=== PATIENT | female | born 1995 | race Caucasian/White ===

== ENCOUNTER 2017-11-17 21:09 | Emergency (ER) | payer OTHER ==
[~2017-11-17] VITALS: Ht 160 cm; Wt 86.9 kg
[2017-11-17 21:13] VITALS: BP 119/77; PULSE 97; RESP 20; TEMP 97.1; O2SAT 98
[2017-11-17 21:49] LABS: BILIRUBIN, URINE NEG (NEG); BLOOD, URINE NEG (NEG); GLUCOSE,URINE NEG (NEG); KETONE, URINE NEG (NEG); NITRITE,URINE NEG (NEG); URINE LEUKOCYTE ESTERASE LARGE (NEG)
[2017-11-17 22:00] LABS: URINE COLOR YELLOW (YELLW/STRAW)
[2017-11-17 22:02] LABS: SQUAMOUS EPITHELIAL CELL URINE > 8 /hpf (0-5)
[2017-11-17 22:03] LABS: BACTERIA, URINE FEW /hpf
[2017-11-17 22:04] LABS: AMORPHOUS SEDIMENT, URINE FEW
[2017-11-17] MEDS ORDERED: SODIUM CHLOR 0.9% 1000 ML INJ 1,000 ML IV SCH (22:15)
[2017-11-17] MEDS ORDERED: ONDANSETRON HCL 4 MG/2 ML VIAL IVP ONE (22:15)
[2017-11-17] MEDS ORDERED: SODIUM CHLORIDE 0.9% FLUSH 10 ML FLUSH IV FLUSH PRN (22:15)
--- NOTE | 2017-11-17 22:18 | PD ---
HPI Chief Complaint: GI Complaint Time Seen by Provider: 22:12 Travel History International Travel<30 days: No Contact w/Intl Traveler<30days: No Traveled to known affect area: No History of Present Illness HPI The patient is a 22-year-old female that for 3 days has been vomiting in the morning and then the evening. This happened to her before when she was but so far urine test have been negative including 1 here. She denies vomiting any blood and he denies any abdominal pain. She denies any fever. She denies any diarrhea. She denies any dysuria, frequency or urgency. She denies any flank pain. [facility] Past Medical History Medical History: Denies Significant Hx Tetanus Vaccination: Unknown Influenza Vaccination: No ?: Not LMP: "early last month" Past Surgical History Surgical History: No Previous Surgery Social History Alcohol Use: Yes (OCCASIONAL) Tobacco Use: Yes (/2 PPD) Substance Use: No Allergies-Medications (Allergen,Severity, Reaction): Coded Allergies: No Known Allergies (Unverified , 11/17/17) Review of Systems Except as stated in HPI: all other systems reviewed are Neg Physical Exam Narrative GENERAL: The patient is alert, oriented 3, mildly dehydrated appearing in no apparent distress. Her vital signs are normal except for heart rate of 97. SKIN: Focused skin assessment warm/dry. HEAD: Atraumatic. Normocephalic. EYES: Pupils equal and round. No scleral icterus. No injection or drainage. ENT: No nasal bleeding or discharge. Mucous membranes pink and moist. NECK: Trachea midline. No JVD. CARDIOVASCULAR: Regular rate and rhythm. No murmur appreciated. RESPIRATORY: No accessory muscle use. Clear to auscultation. Breath sounds equal bilaterally. GASTROINTESTINAL: Abdomen soft, non-tender, nondistended. Hepatic and splenic margins not palpable. No guarding or rebound is present. MUSCULOSKELETAL: No obvious deformities. No clubbing. No cyanosis. No edema. NEUROLOGICAL: Awake and alert. No obvious cranial nerve deficits. Motor grossly within normal limits. Normal speech. PSYCHIATRIC: Appropriate mood and affect; insight and judgment normal. Data Data Last Documented VS Vital Signs Date Time Temp Pulse Resp B/P (MAP) Pulse Ox O2 Delivery O2 Flow Rate FiO2 11/17/17 22:35 16 99 Room Air 11/17/17 21:13 97.1 97 119/77 (91) Orders Orders Urinalysis - C+S If Indicated (11/17/17 21:29) Ed Urine Pregnancytest Poc (11/17/17 21:29) Urine Culture (11/17/17 21:34) Beta Hcg (Quant/Titer) (11/17/17 22:15) Complete Blood Count With Diff (11/17/17 22:15) Comprehensive Metabolic Panel (11/17/17 22:15) Lipase (11/17/17 22:15) Iv Access Insert/Monitor (11/17/17 22:15) Ecg Monitoring (11/17/17 22:15) Oximetry (11/17/17 22:15) Ondansetron Inj (Zofran Inj) (11/17/17 22:15) Sodium Chlor 0.9% 1000 Ml Inj (Ns 1000 M (11/17/17 22:15) Sodium Chloride 0.9% Flush (Ns Flush) (11/17/17 22:15) Labs Laboratory Tests Test 11/17/17 21:34 11/17/17 22:33 Urine Color YELLOW Urine Turbidity MOD Urine pH 6.0 Urine Specific [place] 1.024 Urine Protein NEG mg/dL Urine Glucose (UA) NEG mg/dL Urine Ketones NEG mg/dL Urine Occult Blood NEG Urine Nitrite NEG Urine Bilirubin NEG Urine Leukocyte Esterase LARGE Urine WBC 25-49 /hpf Urine Squamous Epithelial Cells > 8 /hpf Urine Amorphous Sediment FEW Urine Bacteria FEW /hpf Microscopic Urinalysis Comment CULTURE INDICATED White Blood Count 13.4 TH/MM3 Red Blood Count 5.61 MIL/MM3 Hemoglobin 14.4 GM/DL Hematocrit 45.8 % Mean Corpuscular Volume 81.6 FL Mean Corpuscular Hemoglobin 25.6 PG Mean Corpuscular Hemoglobin Concent 31.3 % Red Cell Distribution Width 12.6 % Platelet Count 259 TH/MM3 Mean Platelet Volume 10.7 FL Neutrophils (%) (Auto) 67.6 % Lymphocytes (%) (Auto) 20.9 % Monocytes (%) (Auto) 8.5 % Eosinophils (%) (Auto) 2.3 % Basophils (%) (Auto) 0.7 % Neutrophils # (Auto) 9.1 TH/MM3 Lymphocytes # (Auto) 2.8 TH/MM3 Monocytes # (Auto) 1.1 TH/MM3 Eosinophils # (Auto) 0.3 TH/MM3 Basophils # (Auto) 0.1 TH/MM3 CBC Comment DIFF FINAL Differential Comment Blood Urea Nitrogen 17 MG/DL Creatinine 0.80 MG/DL Random Glucose 91 MG/DL Total Protein 7.8 GM/DL Albumin 3.5 GM/DL Calcium Level 8.6 MG/DL Alkaline Phosphatase 102 U/L Aspartate Amino Transf (AST/SGOT) 15 U/L Alanine Aminotransferase (ALT/SGPT) 29 U/L Total Bilirubin 0.2 MG/DL Sodium Level 139 MEQ/L Potassium Level 4.2 MEQ/L Chloride Level 107 MEQ/L Carbon Dioxide Level 24.6 MEQ/L Anion Gap 7 MEQ/L Estimat Glomerular Filtration Rate 89 ML/MIN Lipase 101 U/L Human Chorionic Gonadotropin, Quant LESS THAN 1 MIU/ML MDM Medical Decision Making Medical Screen Exam Complete: Yes Emergency Medical Condition: Yes Medical Record Reviewed: Yes Interpretation(s) The urine test is negative. The urinalysis shows moderate turbidity, large leukocyte esterase with when he 5-49 white cells and few bacteria and culture is indicated. The CBC shows a white count of 13,400 but is otherwise unremarkable. The complete metabolic profile is normal. The beta-hCG is less than 1. The urine shows moderate turbidity, large leukocyte esterase with 25- 49 white cells and few bacteria and culture is indicated. Differential Diagnosis , viral gastroenteritis, urinary tract infection, dehydration, electrolyte disorder Narrative Course The patient is not according to both the urine and blood test. She does have urinary tract infection and perhaps this is the reason she is nauseated. It may be from the toxins released from the bacteria in the urinary tract infection. She is to increase her liquid intake and is given Macrobid for 10 days. She is also given Zofran 8 mg to prevent the nausea. She is to follow-up with a primary care physician as soon as possible. Diagnosis Primary Impression: Pyelonephritis Additional Impressions: Cystitis Mild dehydration Additional Instructions: As we discussed, increase your liquid intake to establish a good urine flow through your kidneys. This is one reason you're given the stronger strength of Zofran so that she will not get nauseated. Follow-up with a primary care physician as soon as possible. Return to emergency department if worse. Med/Other Pt SpecificInfo: Prescription(s) given Scripts Nitrofurantoin Monohydrate Macrocrystals (Macrobid) 100 Mg Capsule 100 MG PO BID for Infection for 10 Days, #20 CAP 0 Refills Prov: Randy Lee MD 11/18/17 Ondansetron (Zofran) 8 Mg Tab 8 MG PO TID for Nausea/Vomiting, #21 TAB 0 Refills Prov: Randy Lee MD 11/18/17 Disposition: 01 DISCHARGE HOME Condition: Stable Randy Lee MD Nov 17, 2017 22:18
[2017-11-17 22:35] VITALS: RESP 16; O2SAT 99
[2017-11-17 22:51] LABS: AUTOMATED NEUTROPHIL # 9.1 TH/MM3 (1.8-7.7); BASOPHIL # 0.1 TH/MM3 (0-0.2); BASOPHIL % 0.7 % (0.0-2.0); EOSINOPHIL # 0.3 TH/MM3 (0-0.4); EOSINOPHIL % 2.3 % (0.0-4.0); HEMATOCRIT 45.8 % (35.0-46.0); HEMOGLOBIN 14.4 GM/DL (11.6-15.3); LYMPH % 20.9 % (9.0-44.0); LYMPHOCYTE # 2.8 TH/MM3 (1.0-4.8); MEAN CELL VOLUME 81.6 FL (80.0-100.0); MEAN CORPUSCULAR HEMOGLOBIN 25.6 PG (27.0-34.0); MEAN CORPUSCULAR HGB CONC 31.3 % (32.0-36.0); MEAN PLATELET VOLUME 10.7 FL (7.0-11.0); MONO % 8.5 % (0.0-8.0); MONOCYTE # 1.1 TH/MM3 (0-0.9); NEUT % 67.6 % (16.0-70.0); PLATELET COUNT 259 TH/MM3 (150-450); RED BLOOD COUNT 5.61 MIL/MM3 (4.00-5.30); RED CELL DISTRIBUTION WIDTH 12.6 % (11.6-17.2); WHITE BLOOD COUNT 13.4 TH/MM3 (4.0-11.0)
[2017-11-17 22:59] LABS: CHLORIDE 107 MEQ/L (98-107); SODIUM (NA) 139 MEQ/L (136-145)
[2017-11-17 23:02] LABS: CALCIUM 8.6 MG/DL (8.5-10.1)
[2017-11-17 23:03] LABS: ALBUMIN 3.5 GM/DL (3.4-5.0); BICARBONATE 24.6 MEQ/L (21.0-32.0); BLOOD UREA NITROGEN 17 MG/DL (7-18); GLUCOSE,RANDOM 91 MG/DL (74-106); LIPASE 101 U/L (73-393)
[2017-11-17 23:06] LABS: ALT (GPT) 29 U/L (10-53); AST (GOT) 15 U/L (15-37); GLOMERULAR FILTRATION RATE 89 ML/MIN (>89)
[2017-11-17 23:07] LABS: TOTAL BILIRUBIN ADULT 0.2 MG/DL (0.2-1.0); TOTAL PROTEIN 7.8 GM/DL (6.4-8.2)
[2017-11-17 23:08] LABS: ALKALINE PHOSPHATASE 102 U/L (45-117)
[2017-11-18] MEDS ORDERED: ZOFR8TAB PO (00:02)
[2017-11-18] MEDS ORDERED: MACR100C2 PO (00:02)
[2017-11-18] MEDS ORDERED: NITROFURANTOIN MONOHYD MACROCR 100 MG CAP PO ONE (00:15)
[2017-11-18 00:20] VITALS: BP 128/68
== END 2017-11-18 00:28 | disposition home or self-care (01) ==
LOC: PHED 21:09
DX: N12 Tubulo-interstitial nephritis, not specified as acute or chronic (principal); N30.90 Cystitis, unspecified without hematuria; E86.0 Dehydration; F17.200 Nicotine dependence, unspecified, uncomplicated
CPT/HCPCS: 80053; 81001; 83690; 84702; 84703; 85025; 87086; 96361; 96374; 99284; J2405; J7030